=== PATIENT | male | born 1990 | race Caucasian/White ===

== ENCOUNTER 2017-01-21 21:02 | Emergency (ER) | payer MEDICAID ==
[2017-01-21 21:08] VITALS: RESP 18; TEMP 98.2
[2017-01-21] MEDS ORDERED: LORAZEPAM 1 MG PREPACK#4 BTL TAKEHOME ONE (22:05)
[2017-01-21] MEDS ORDERED: LORazepam 1 MG TAB PO ONE (22:07)
--- NOTE | 2017-01-21 22:11 | EDPHY ---
H & P Stated Complaint: increasing anxiety, anxiety attack starting at 1700, MMJ at 1200 Time Seen by Provider: 01/21/17 21:10 HPI/ROS: CHIEF COMPLAINT: Anxiety attack HISTORY OF PRESENT ILLNESS: 26 year old male presents to the emergency department with his mother reports increasing anxiety over the last month. Patient has recently had a break-up with his girlfriend who was cheating on him. This has caused a significant increase in his anxiety. Patient reports a history of anxiety, depression, attention deficit hyperactivity disorder. He sees a psychiatrist every and a therapist weekly. His psychiatrist appointment is not for another 2 weeks. He has an appointment with his therapist tomorrow. Patient takes gabapentin daily for his anxiety. Patient reports he has been drinking more alcohol than usual, 2-3 drinks a night 6-7 drinks a couple days during the week, last binge was 4 days ago. Patient reports he has not been sleeping. Patient denies suicidal ideations, homicidal ideations, auditory or visual hallucinations. Patient denies history of benzodiazepine use or abuse. He reports occasional marijuana use. REVIEW OF SYSTEMS: A comprehensive 10 point review of systems is otherwise negative aside from elements mentioned in the history of present illness. Source: Patient Exam Limitations: No limitations - Personal History Current Tetanus/Diphtheria Vaccine: Yes Tetanus Vaccine Date: 2012 - Medical/Surgical History Hx Asthma: No Hx Chronic Respiratory Disease: No Hx Diabetes: No Hx Cardiac Disease: No Hx Renal Disease: No Hx Cirrhosis: No Hx Alcoholism: No Hx HIV/AIDS: No Hx Splenectomy or Spleen Trauma: No Other PMH: PSH: appy. PMH: anxiety and depression - Social History Smoking Status: Never smoked Alcohol Use: Heavy Drug Use: Marijuana - Physical Exam Exam: Physical Exam Gen: Alert and Oriented, NAD HEENT: PERRL, moist mucous membranes NECK: no meningismus CV: regular rate and regular rhythm PULM: CTAB, no wheezes ABDOMEN: soft, non tender to palpation, BS present BACK: No CVA tenderness NEURO: Neurologically grossly intact EXTREMITIES: normal appearing SKIN: no rash or break in skin on exposed skin PSYCH: Anxious, denies suicidal ideation, homicidal ideation, auditory and visual hallucinations. Constitutional: Initial Vital Signs Temperature (C) 36.8 C 01/21/17 21:05 Heart Rate 79 01/21/17 21:05 Respiratory Rate 18 01/21/17 21:05 Blood Pressure 117/85 H 01/21/17 21:05 O2 Sat (%) 96 01/21/17 21:05 O2 Delivery Mode Room Air Allergies/Adverse Reactions: No Known Allergies Allergy (Unverified 01/21/17 21:05) Home Medications: Medication Instructions Recorded Gabapentin 01/21/17 Viibryd 01/21/17 Medical Decision Making ED Course/Re-evaluation: 26-year-old male presents with worsening anxiety over the last month. He reports he has not slept for 4 days. His mother is at bedside with him. Patient is given 1 mg of lorazepam in the emergency department. He is discharged with a prepack of 4 tablets of 1 mg lorazepam. He agrees to follow up with his therapist tomorrow as scheduled and will call his psychiatrist Monday morning to be seen at 1st available appointment. Patient denies suicidal ideations, homicidal ideations, auditory or visual hallucinations. He is given [facility] and the crisis Center for increase in symptoms. He also is instructed he can return to the emergency department for any new symptoms, worsening symptoms or concerns. Differential Diagnosis: Diagnosis considered but not limited to anxiety, depression, polysubstance abuse. Departure - Departure Disposition: Home, Routine, Self-Care Clinical Impression: Anxiety attack Condition: Good Instructions: Lorazepam (By mouth), Anxiety (ED), Panic Attack (ED) Additional Instructions: Take 1mg of Lorazepam every 8 hours as needed for anxiety. Follow-up with your therapist as scheduled tomorrow at 11:00 a.m.. Call your psychiatrist 1st thing Monday morning to make an earlier appointment. Do not drink any alcohol as this makes anxiety and depression much works. Do not use any drugs. [employer] [facility] does operate a 13/02 psychiatric crisis unit located at [address] [place] [address]. The telephone number for the 24 hour crisis center is . Please return to the ED if you are feeling suicidal, having thoughts of harming yourself/others or should you feel unsafe or have worsening symptoms. Referrals: MAYRA MCCOY [Other] - As per Instructions
[2017-01-21 22:22] VITALS: BP 146/84; PULSE 70; O2SAT 97
== END 2017-01-21 22:20 | disposition home or self-care (01) ==
DX: F41.9 Anxiety disorder, unspecified (principal)

== ENCOUNTER 2017-03-09 07:47 | Emergency (ER) | payer MEDICAID ==
[2017-03-09 07:54] VITALS: RESP 18
[2017-03-09] MEDS ORDERED: chlordiazePOXIDE 25 MG CAP PO ONE (08:03)
[2017-03-09] MEDS ORDERED: LORazepam 2 MG/ML INJ IVP ONE ×4 (08:03→11:44)
[2017-03-09] MEDS ORDERED: NS 1,000 ML IV ONE ×2 (08:03→09:31)
--- NOTE | 2017-03-09 08:08 | EDPHY ---
HPI/HX/ROS/PE/MDM Narrative: CHIEF COMPLAINT: Polysubstance abuse HPI: The patient is a 26-year-old male here with polysubstance abuse. The patient states he has been drinking heavily for the past three days. His last drink was at 10 p.m. last night. Patient admits to Xanax and cocaine use as well for the past two days. He states he was feeling more anxious and having panic attacks. Patient took 1600mg Gabapentin, but continues to feel anxious. He complains of a headache, abdominal pain, and feels very dehydrated. He denies chest pain, palpitations, vomiting, or diarrhea. REVIEW OF SYSTEMS: Aside from elements discussed in the HPI, a comprehensive 10-point review of systems was reviewed and is negative. PMH: Anxiety, Depression, Alcohol abuse PSH: Appendectomy SOCIAL HISTORY: Heavy alcohol use, Cocaine use. PHYSICAL EXAM: General: Patient is alert, in no acute distress. ENT: Eyes are normal to inspection. ENT inspection normal. Neck: Normal inspection. Full range of motion. Respiratory: No respiratory distress. Breath sounds normal bilaterally. Cardiovascular: Regular rate and rhythm. Strong peripheral pulses. Abdomen: The abdomen is nontender to palpation. There are no peritoneal signs. There are normal bowel sounds. Back: Normal to inspection. No tenderness to palpation. Skin: Normal color. No rash. Warm and dry. Extremities: Normal appearance. Full range of motion. Neuro: Oriented x3. Normal motor function. Normal sensory function. ED Course: Patient received Librium, Ativan, and IV fluids. Plan to check basic lab work. HR has remained between 108 and 120 after Ativan, Librium, and fluids. Patient is ready to be discharged. He asked me for a prescription for Klonopin. I told the patient I will not fill the medication and that he should followup with his PCP to discuss medication refill. Patient will be discharged to the [facility]. MDM: This patient presents with a combination of alcohol withdrawal, anxiety and polysubstance, including cocaine, abuse. We treated him with IVNS and ativan. On re-evaluation he feels much better. I see no evidence of infectious process or cardiovascular disease. He would like to be discharged home. - Data Points Laboratory Results: Laboratory Results 03/09/17 08:20 03/09/17 08:20 Sodium 139 mEq/L mEq/L (134-144) Potassium 4.2 mEq/L mEq/L (3.5-5.2) Chloride 94 mEq/L L mEq/L (97-110) Carbon Dioxide 20 mEq/l L mEq/l (22-31) Anion Gap 25 mEq/L H mEq/L (8-16) BUN 14 mg/dL mg/dL (7-23) Creatinine 1.5 mg/dL H mg/dL (0.7-1.3) Estimated GFR 57 Glucose 80 mg/dL mg/dL (70-100) Calcium 10.9 mg/dL H mg/dL (8.5-10.4) Phosphorus 4.1 mg/dL mg/dL (2.5-4.5) Ethyl Alcohol 97 mg/dL H mg/dL (0-10) Medications Given: Discontinued Medications Chlordiazepoxide HCl (Librium) 25 mg PO EDNOW ONE Stop: 03/09/17 08:04 Last Admin: 03/09/17 08:15 Dose: 25 mg Sodium Chloride (Ns) 1,000 mls @ 0 mls/hr IV EDNOW ONE; Wide Open PRN Reason: Protocol Stop: 03/09/17 08:04 Last Admin: 03/09/17 08:16 Dose: 1,000 mls Sodium Chloride (Ns) 1,000 mls @ 0 mls/hr IV ONCE ONE PRN Reason: Wide Open Stop: 03/09/17 09:32 Last Admin: 03/09/17 09:42 Dose: 1,000 mls Lorazepam (Ativan Injection) 1 mg IVP EDNOW ONE Stop: 03/09/17 08:04 Last Admin: 03/09/17 08:15 Dose: 1 mg Lorazepam (Ativan Injection) 1 mg IVP EDNOW ONE Stop: 03/09/17 10:11 Last Admin: 03/09/17 10:19 Dose: 1 mg Lorazepam (Ativan Injection) 1 mg IVP EDNOW ONE Stop: 03/09/17 10:12 Last Admin: 03/09/17 10:19 Dose: Not Given Lorazepam (Ativan Injection) 1 mg IVP EDNOW ONE Stop: 03/09/17 11:45 Last Admin: 03/09/17 11:48 Dose: 1 mg General Time Seen by Provider: 03/09/17 07:59 Initial Vital Signs: Initial Vital Signs Temperature (C) 36.7 C 03/09/17 07:48 Heart Rate 126 H 03/09/17 07:48 Respiratory Rate 18 03/09/17 07:48 Blood Pressure 111/91 H 03/09/17 07:48 O2 Sat (%) 94 03/09/17 07:48 O2 Delivery Mode Room Air Allergies/Adverse Reactions: No Known Allergies Allergy (Verified 03/09/17 17:47) Home Medications: Medication Instructions Recorded Gabapentin 01/21/17 Viibryd 01/21/17 Levomefolate/Algal Oil 5 mg PO 03/09/17 [Deplin-Algal Oil 7.5 mg Cap] chlordiazePOXIDE 25MG PREPK#6 1 btl TAKEHOME Q6-8PRN PRN #6 btl 03/09/17 [Librium 25 mg Prepack#6] Departure - Departure Disposition: Home, Routine, Self-Care Clinical Impression: Polysubstance abuse Condition: Good Instructions: Polysubstance Abuse (ED) Additional Instructions: Please refrain from abusing alcohol and other drugs. Return to the emergency department immediately for fever, vomiting, confusion, headache, abdominal pain or other worsening of condition. Followup with your primary care physician within 72 hours for reevaluation. Referrals: [facility],. [Clinic] - As per Instructions [facility] 24 Hours [Outside] - As per Instructions Report Scribed for: Zachery Heredia Report Scribed by: Kathe Yang Date of Report: 03/09/17 Time of Report: 08:08 Physician Review and Approval Statement: Portions of this note were transcribed by a medical operations supervisor. I personally performed the history, physical exam, and medical decision-making; and confirmed the accuracy of the information in the transcribed note.
[2017-03-09 08:41] LABS: ANION GAP 25 mEq/L (8-16); CALCIUM 10.9 mg/dL (8.5-10.4); CARBON DIOXIDE 20 mEq/l (22-31); CHLORIDE 94 mEq/L (97-110); CREATININE 1.5 mg/dL (0.7-1.3); ETHANOL SERUM 97 mg/dL (0-10); GLOMERULAR FILTRATION RATE 57; GLUCOSE 80 mg/dL (70-100); POTASSIUM 4.2 mEq/L (3.5-5.2); SODIUM 139 mEq/L (134-144)
[2017-03-09 09:31] VITALS: O2SAT 95
[2017-03-09 11:50] VITALS: BP 116/80; PULSE 120
[2017-03-09 12:19] VITALS: TEMP 97.5
== END 2017-03-09 12:19 | disposition home or self-care (01) ==
DX: F19.10 Other psychoactive substance abuse, uncomplicated (principal); E86.9 Volume depletion, unspecified
CPT/HCPCS: 96374; G0480; J2060

== ENCOUNTER 2017-03-09 15:28 | Emergency (ER) | payer MEDICAID ==
[2017-03-09 15:32] VITALS: BP 117/82; PULSE 101; RESP 18; TEMP 97.7; O2SAT 97
--- NOTE | 2017-03-09 16:23 | EDPHY ---
H & P Stated Complaint: Still anxious;n/v;here this morning;wants something for his stomach HPI/ROS: I went to go and see and evaluate this patient however the patient eloped from the emergency room. I did not see or evaluate him. Source: Patient - Personal History Tetanus Vaccine Date: 2012 - Medical/Surgical History Hx Asthma: No Hx Chronic Respiratory Disease: No Hx Diabetes: No Hx Cardiac Disease: No Hx Renal Disease: No Hx Cirrhosis: No Hx Alcoholism: Yes Hx HIV/AIDS: No Hx Splenectomy or Spleen Trauma: No Other PMH: PSH: appy. PMH: anxiety and depression, alcohol abuse - Social History Smoking Status: Never smoked Constitutional: Initial Vital Signs Temperature (C) 36.5 C 03/09/17 15:29 Heart Rate 101 H 03/09/17 15:29 Respiratory Rate 18 03/09/17 15:29 Blood Pressure 117/82 H 03/09/17 15:29 O2 Sat (%) 97 03/09/17 15:29 O2 Delivery Mode Room Air Allergies/Adverse Reactions: No Known Allergies Allergy (Verified 03/09/17 15:29) Home Medications: Medication Instructions Recorded Gabapentin 01/21/17 Viibryd 01/21/17 Levomefolate/Algal Oil 5 mg PO 03/09/17 [Deplin-Algal Oil 7.5 mg Cap] Departure - Departure Disposition: Left Without Being Seen Referrals: NONE *PRIMARY CARE P,. [Primary Care Provider] - As per Instructions
== END 2017-03-09 16:20 | disposition left against medical advice (07) ==
DX: Z53.21 Procedure and treatment not carried out due to patient leaving prior to being seen by health care provider (principal)

== ENCOUNTER 2017-03-09 17:47 | Emergency (ER) | payer MEDICAID ==
[2017-03-09 17:50] VITALS: TEMP 97.7; O2SAT 97
[2017-03-09] MEDS ORDERED: chlordiazePOXIDE 25 MG CAP PO ONE (18:01)
[2017-03-09] MEDS ORDERED: LORazepam 2 MG/ML INJ IVP ONE (18:01)
[2017-03-09] MEDS ORDERED: LORazepam 1 MG TAB PO ONE (18:01)
[2017-03-09] MEDS ORDERED: ONDANSETRON 4 MG/2 ML VIAL IVP ONE (18:05)
--- NOTE | 2017-03-09 18:13 | EDPHY ---
H & P Smoking Status: Never smoked Time Seen by Provider: 03/09/17 18:12 HPI/ROS: HPI: Mr. Matias is a 26 yrs, male who presents with Chief Complaint: Alcohol withdrawal Location: Body Quality: Alcohol withdrawal Duration: Starting today Signs and Symptoms: Positive nausea, no vomiting, mild tremor, no sweating, severe anxiety, no agitation, mild tactile disturbances, no auditory disturbance , no visual disturbance, denies suicidal ideation, denies homicidal ideation, denies hallucinations, mild headache Timing: Constant, worsening Severity: Moderate Context: Patient has a history of regular alcohol use drinking approximately 10 -12 shots of vodka daily. Patient was seen earlier in the day, with lab workup , symptom resolution with IV Ativan and Librium, per chart review patient eloped. Patient was seen at the [facility] and was noted to be in alcoholic and sent to the ER for medical clearance and medication. Also admits to using Ativan and cocaine approximately 5 days ago but denies regular use. Has a history of anxiety and depression diagnosed at 14 years of age. Denies any psychiatric admission. Denies any suicide attempts. Modifying Factors: Comment: ROS: Eyes: No blurred vision Respiratory: No shortness of breath, no cough Cardiovascular: No chest pain Gastrointestinal: + nausea, no vomiting no diarrhea Genitourinary: No dysuria Extremities: No myalgias Neurologic: No weakness, no numbness Skin: No rashes Hematologic: No bruising, no bleeding MEDICAL/SURGICAL HISTORY: Generally healthy. Appendectomy. (Blanca Norman) Social History: Unemployed. Has a girlfriend. (Blanca Norman) Physical Exam: CONSTITUTIONAL: Adult white male, jittery, awake and alert, no obvious distress HEENT: Atraumatic and normocephalic, PERRL, EOMI. Tympanic membranes clear. . Oropharynx clear, no exudate and moist pink mucosa. Airway patent. No lymphadenopathy. No meningismus. Cardiovascular: Normal S1/S2, tachycardia, regular rhythm, without murmur rub or gallop. PULMONARY/CHEST: Symmetrical and nontender. Clear to auscultation bilaterally Good air movement. No accessory muscle usage. ABDOMEN: Soft, nondistended, nontender, no rebound, no guarding, no peritoneal signs, no masses or organomegaly. No CVAT. EXTREMITIES: 2/2 pulses, no deformities, no clubbing, no cyanosis or edema. NEUROLOGICAL: no focal neuro deficits. GCS 15. SKIN: Warm and dry, no erythema. no rash. Good capillary refill. (Blanca Norman) Constitutional: Initial Vital Signs Temperature (C) 36.5 C 03/09/17 17:48 Heart Rate 104 H 03/09/17 17:48 Respiratory Rate 18 03/09/17 17:48 Blood Pressure 110/82 H 03/09/17 17:48 O2 Sat (%) 97 03/09/17 17:48 O2 Delivery Mode Room Air Allergies/Adverse Reactions: No Known Allergies Allergy (Verified 03/09/17 17:47) Home Medications: Medication Instructions Recorded Gabapentin 01/21/17 Viibryd 01/21/17 Levomefolate/Algal Oil 5 mg PO 03/09/17 [Deplin-Algal Oil 7.5 mg Cap] chlordiazePOXIDE 25MG PREPK#6 1 btl TAKEHOME Q6-8PRN PRN #6 btl 03/09/17 [Librium 25 mg Prepack#6] Medical Decision Making ED Course/Re-evaluation: Labs, IVF 1 liter NS, and oral medication given CIWA 8 No signs of anemia, electrolyte imbalance, delirium tremens, acute kidney injury , seizure disorder No homicidal ideation, suicidal ideation, psychosis Advised to follow up with the [facility] and Librium prepack will be given (Blanca Norman) Differential Diagnosis: Nausea and vomiting including but not limited to gastroenteritis, gastritis, appendicitis, and medication side effect. (Blanca Norman) - Data Points Laboratory Results: Laboratory Results 03/09/17 18:10 03/09/17 18:10 03/09/17 03/09/17 18:10 18:10 WBC 8.59 10^3/uL 10^3/uL (3.80-9.50) RBC 4.81 10^6/uL 10^6/uL (4.40-6.38) Hgb 16.1 g/dL g/dL (13.7-17.5) Hct 44.8 % % (40.0-51.0) MCV 93.1 fL fL (81.5-99.8) MCH 33.5 pg pg (27.9-34.1) MCHC 35.9 g/dL g/dL (32.4-36.7) RDW 11.9 % % (11.5-15.2) Plt Count 300 10^3/uL 10^3/uL (150-400) MPV 9.1 fL fL (8.7-11.7) Neut % (Auto) 72.8 % % (39.3-74.2) Lymph % (Auto) 19.1 % % (15.0-45.0) [place] % (Auto) 7.5 % % (4.5-13.0) Eos % (Auto) 0.1 % L % (0.6-7.6) Baso % (Auto) 0.3 % % (0.3-1.7) Nucleat RBC Rel Count 0.0 % % (0.0-0.2) Absolute Neuts (auto) 6.25 10^3/uL 10^3/uL (1.70-6.50) Absolute Lymphs (auto) 1.64 10^3/uL 10^3/uL (1.00-3.00) Absolute Monos (auto) 0.64 10^3/uL 10^3/uL (0.30-0.80) Absolute Eos (auto) 0.01 10^3/uL L 10^3/uL (0.03-0.40) Absolute Basos (auto) 0.03 10^3/uL 10^3/uL (0.02-0.10) Absolute Nucleated RBC 0.00 10^3/uL 10^3/uL (0-0.01) Immature Gran % 0.2 % % (0.0-1.1) Immature Gran # 0.02 10^3/uL 10^3/uL (0.00-0.10) Sodium 139 mEq/L mEq/L (134-144) Potassium 4.3 mEq/L mEq/L (3.5-5.2) Chloride 98 mEq/L mEq/L (97-110) Carbon Dioxide 22 mEq/l mEq/l (22-31) Anion Gap 19 mEq/L H mEq/L (8-16) BUN 14 mg/dL mg/dL (7-23) Creatinine 1.1 mg/dL mg/dL (0.7-1.3) Estimated GFR > 60 Glucose 85 mg/dL mg/dL (70-100) Calcium 9.8 mg/dL mg/dL (8.5-10.4) Salicylates < 1.0 mg/dL L mg/dL (2.0-20.0) Acetaminophen < 10 mcg/mL L mcg/mL (10-30) Ethyl Alcohol < 10 mg/dL mg/dL (0-10) Medications Given: Discontinued Medications Chlordiazepoxide HCl (Librium) 25 mg PO EDNOW ONE Stop: 03/09/17 18:02 Last Admin: 03/09/17 19:43 Dose: 25 mg Lorazepam (Ativan) 1 mg PO EDNOW ONE Stop: 03/09/17 18:02 Last Admin: 03/09/17 20:13 Dose: Not Given Lorazepam (Ativan Injection) 1 mg IVP EDNOW ONE Stop: 03/09/17 18:02 Last Admin: 03/09/17 18:21 Dose: 1 mg Ondansetron HCl (Zofran Odt) 4 mg PO EDNOW ONE Stop: 03/09/17 19:30 Last Admin: 03/09/17 19:42 Dose: 4 mg Departure - Departure Disposition: Home, Routine, Self-Care Clinical Impression: Alcohol abuse with alcohol-induced anxiety disorder Alcohol withdrawal Qualifiers: Complication of substance-induced condition: uncomplicated Qualified Code(s): F10.230 - Alcohol dependence with withdrawal, uncomplicated Clinical Impression: (Ruled Out): 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 [Primary Care Provider] - As per Instructions [facility] 24 Hours [Outside] - As per Instructions Prescriptions: chlordiazePOXIDE 25MG PREPK#6 [Librium 25 mg Prepack#6] 1 btl TAKEHOME Q6-8PRN PRN #6 btl PRN Reason: Ciwa Score 6 - 11
[2017-03-09 18:22] LABS: % IMMATURE GRANULYOCYTES 0.2 % (0.0-1.1); ABSOLUTE IMMATURE GRANULOCYTES 0.02 10^3/uL (0.00-0.10); ADD DIFF? NO; ADD MORPH? NO; ADD SCAN? NO; ATYPICAL LYMPHOCYTE FLAG 0 (0-99); FRAGMENT RBC FLAG 0 (0-99); HEMATOCRIT 44.8 % (40.0-51.0); HEMOGLOBIN 16.1 g/dL (13.7-17.5); LEFT SHIFT FLG 0 (0-99); LIPEMIA HEMOLYSIS FLAG 90 (0-99); MEAN CELL HEMOGLOBIN 33.5 pg (27.9-34.1); MEAN CELL HEMOGLOBIN CONCENTR. 35.9 g/dL (32.4-36.7); MEAN CELL VOLUME 93.1 fL (81.5-99.8); MEAN PLATELET VOLUME 9.1 fL (8.7-11.7); PLATELET CLUMPS FLAG 0 (0-99); PLATELET COUNT 300 10^3/uL (150-400); RED BLOOD CELL COUNT 4.81 10^6/uL (4.40-6.38); RED CELL DISTRIBUTION WIDTH 11.9 % (11.5-15.2)
[2017-03-09 18:33] LABS: ANION GAP 19 mEq/L (8-16); CALCIUM 9.8 mg/dL (8.5-10.4); CARBON DIOXIDE 22 mEq/l (22-31); CHLORIDE 98 mEq/L (97-110); CREATININE 1.1 mg/dL (0.7-1.3); ETHANOL SERUM < 10 mg/dL (0-10); GLOMERULAR FILTRATION RATE > 60; GLUCOSE 85 mg/dL (70-100); POTASSIUM 4.3 mEq/L (3.5-5.2); SALICYLATE < 1.0 mg/dL (2.0-20.0); SODIUM 139 mEq/L (134-144)
[2017-03-09] MEDS ORDERED: ONDANSETRON DISINTEGRATING 4 MG TAB PO ONE (19:29)
[2017-03-09 19:46] VITALS: BP 127/82; PULSE 98; RESP 16
== END 2017-03-09 20:15 | disposition home or self-care (01) ==
DX: F10.230 Alcohol dependence with withdrawal, uncomplicated (principal)
CPT/HCPCS: 96374; G0480; J2060

== ENCOUNTER 2017-11-04 18:30 | Emergency (ER) | payer MEDICAID ==
[2017-11-04 18:54] VITALS: BP 119/56
--- NOTE | 2017-11-04 19:15 | EDPHY ---
H & P Time Seen by Provider: 11/04/17 19:08 HPI/ROS: CHIEF COMPLAINT: Medication refill request HISTORY OF PRESENT ILLNESS: 27-year-old male history of depression ran out of his Viibryd 60 mg once daily medication 2 days ago. He recently moved from [place]. He is planning on following up with psychiatrist here in [place]. Today is Monday. He did not know where to go. He is feeling the effects of coming off this medication. He denies suicidal or homicidal ideation. PHYSICAL EXAM (Prior to examination, patient consented to physical exam, hands were washed and my usual and customary physical exam procedures followed) 1) GENERAL: Well-developed, well-nourished, alert and oriented. Appears to be in no acute distress. 2) HEAD: Normocephalic 3) HEENT: sclera anicteric 4) LUNGS: Breathing comfortably. Smoking Status: Never smoked Constitutional: Initial Vital Signs Temperature (C) 37 C 11/04/17 18:52 Heart Rate 56 L 11/04/17 18:52 Respiratory Rate 16 11/04/17 18:52 Blood Pressure 119/56 L 11/04/17 18:52 O2 Sat (%) 97 11/04/17 18:52 O2 Delivery Mode Room Air Allergies/Adverse Reactions: No Known Allergies Allergy (Verified 11/04/17 18:50) Home Medications: Medication Instructions Recorded Gabapentin 01/21/17 Viibryd 01/21/17 Levomefolate/Algal Oil 5 mg PO 03/09/17 [Deplin-Algal Oil 7.5 mg Cap] Vilazodone HCl [Viibryd] 60 mg PO DAILY 30 Days tablet 11/04/17 MDM/Departure - [facility] ED Course/Re-evaluation: 7:13 p.m.: Agreed this patient 1 month prescription of his medication. However further refills will be obtained from his psychiatrist. I have provided him with mental health resources as well. He does not meet criteria for an M1 hold. He is calm, cooperative without suicidal or homicidal ideations. Care of patient under supervision of secondary supervising physician Dr Mcdonnell. - Depart Disposition: Home, Routine, Self-Care Clinical Impression: Medication refill request, History of depression Condition: Good Instructions: Depression (ED) Additional Instructions: Return to the ER immediately if you experience thoughts of hurting yourself, thoughts of hurting other people, thoughts of killing other people or killing yourself. Prescriptions: Vilazodone HCl [Viibryd] 60 mg PO DAILY 30 Days tablet Referrals: [facility],. [Clinic] - 2-3 days, call for appt. (Further prescriptions will need to be obtained from your primary mental health provider)
== END 2017-11-04 19:29 | disposition home or self-care (01) ==
DX: Z76.0 Encounter for issue of repeat prescription (principal); Z86.59 Personal history of other mental and behavioral disorders

== ENCOUNTER 2017-12-12 10:14 | Emergency (ER) | payer MEDICAID ==
[2017-12-12 10:22] VITALS: BP 112/69
--- NOTE | 2017-12-12 10:27 | EDPHY ---
H & P Stated Complaint: needs prescription for viibrid, working [facility] Time Seen by Provider: 12/12/17 10:23 - Personal History Current Tetanus/Diphtheria Vaccine: Yes Current Tetanus Diphtheria and Acellular Pertussis (TDAP): Yes Tetanus Vaccine Date: 2012 - Medical/Surgical History Hx Asthma: No Hx Chronic Respiratory Disease: No Hx Diabetes: No Hx Cardiac Disease: No Hx Renal Disease: No Hx Cirrhosis: No Hx Alcoholism: Yes Hx HIV/AIDS: No Hx Splenectomy or Spleen Trauma: No Other PMH: PSH: appy. PMH: anxiety and depression, alcohol abuse - Social History Smoking Status: Never smoked Constitutional: Initial Vital Signs Temperature (C) 36.7 C 12/12/17 10:20 Heart Rate 70 12/12/17 10:20 Respiratory Rate 18 12/12/17 10:20 Blood Pressure 112/69 12/12/17 10:20 O2 Sat (%) 97 12/12/17 10:20 O2 Delivery Mode Room Air Allergies/Adverse Reactions: No Known Allergies Allergy (Verified 12/12/17 10:19) Home Medications: Medication Instructions Recorded Gabapentin 01/21/17 Viibryd 01/21/17 Levomefolate/Algal Oil 5 mg PO 03/09/17 [Deplin-Algal Oil 7.5 mg Cap] Vilazodone HCl [Viibryd] 60 mg PO DAILY 30 Days tablet 11/04/17 Vilazodone HCl [Viibryd] 60 mg PO DAILY #90 tablet 12/12/17 Medical Decision Making ED Course/Re-evaluation: CHIEF COMPLAINT: Viibryd refill HISTORY OF PRESENT ILLNESS: The patient is a 27 y/o male with a history of anxiety and depression complaining of needing a Viibryd refill. He has been taking Viibryd for 3 years , but recently moved back to [place] and has not established a psychiatrist yet. He recently ran out of his Viibryd medication 11 days ago, and has been feeling anxious and has had difficulty sleeping. Denies suicidal or homicidal ideations. Denies chest pain, shortness of breath, abdominal pain, urinary or bowel complaints, numbness, paresthesias. REVIEW OF SYSTEMS: A 10 point review of systems was performed and is negative with the exception of the elements mentioned in the history of present illness. PHYSICAL EXAM: HR, BP, O2 Sat, RR. Temp noted General Appearance: Alert, well hydrated, appropriate, and non-toxic appearing. Head: Atraumatic without scalp tenderness or obvious injury Eyes: Pupils equal, round, reactive to light and accommodation, EOMI, no trauma , no injection. Ears: Clear bilaterally, no perforation, normal landmarks Nose: Atraumatic, no rhinorrhea, clear. Throat: There is no erythema or exudates, no lesions, normal tonsils, mucus membranes moist. Neck: Supple, nontender, no lymphadenopathy. Respiratory: No retractions, no distress, no wheezes, and no accessory muscle use. Lungs are clear to auscultation bilaterally. Cardiovascular: Regular rate and rhythm, no murmurs, rubs, or gallops. Bilateral carotid, radial, dorsalis pedis, and posterior tibial pulses intact. Good capillary refill all extremities. Gastrointestinal: Abdomen is soft, nontender, non-distended, no masses, no rebound, no guarding, no peritoneal signs. Musculoskeletal: Normal active ROM of all extremities, atraumatic. Neurological: Alert, appropriate, and interactive. The patient has normal DTRs and non-focal cranial nerves, motor, sensory, and cerebellar exam. Skin: No rashes, good turgor, no nodules on palpation. Past medical history: Anxiety and depression Past surgical history: Appendectomy Family history: Denies Social history: Lives in [place], not employed, single DIFFERENTIAL DIAGNOSIS: The differential diagnosis for the patient's depression included but was not limited to prescription refill, functional and major depression, situational depression, medication side effect, drugs, and alcohol abuse. MEDICAL DECISION MAKING: The patient is a 27 y/o male with a history of anxiety and depression presenting with needing a Viibryd refill. He is mildly anxious but otherwise his exam is normal. Laboratory and imaging studies are not indicated at this time. 1026: Spoke with case management regarding this patient. 1033: Reassessed patient; I have provided him a Viibryd prescription for a month with one refill. I have also discussed establishing a psychiatrist. Return precautions provided; patient is comfortable with this plan. Departure - Departure Disposition: Home, Routine, Self-Care Clinical Impression: Prescription refill Depression Qualifiers: Depression Type: unspecified Qualified Code(s): F32.9 - Major depressive disorder, single episode, unspecified Condition: Good Instructions: Depression (ED) Additional Instructions: 1. Take Viibryd as prescribed. 2. Follow-up with your mental health provider as directed. 3. Return to the ED for thoughts of self-harm, racing thoughts or other concerns. Referrals: [facility],. [Clinic] - As per Instructions [facility],. [Clinic] - As per Instructions Pato Kohler DO [Doctor of Osteopathy] - As per Instructions Prescriptions: Vilazodone HCl [Viibryd] 60 mg PO DAILY #90 tablet Report Scribed for: Alex Rodriguez Report Scribed by: Annie Keith Date of Report: 12/12/17 Time of Report: 10:34
--- NOTE | 2017-12-12 11:36 | ASMTCMCOM ---
CM Note CM Note Notes: Patient arrives to ED today requesting refil of his Vibryd, stating that he is newly back in [place] and has not established a psychiatrist or PCP. Patient provided a prescription and encouraged to follow up with a prescriber. Patient evidently reported that he has been trying to get in with [facility] but has not been able to make an appointment. Chart reviewed and noted that patient was in this ED on 11/04/17 requesting a prescription for his Vibryd. He received a 30 day prescription and given resources for [facility] and other prescribers at that time. I have called [facility] and LM with Astrid (Dr. De's nurse) [phone] re patient's return to the ED and determine if he is a current patient and/or has a pending appointment. I have LM with the patient as well to see if he has established a provider and/or would like assistance in doing so Date Signed: 12/12/2017 11:35 AM Electronically Signed By:Tiffany White RN
== END 2017-12-12 10:37 | disposition home or self-care (01) ==
DX: F32.9 Major depressive disorder, single episode, unspecified (principal); Z76.0 Encounter for issue of repeat prescription

== ENCOUNTER 2018-08-17 07:45 | Emergency (ER) | payer MEDICAID ==
--- NOTE | 2018-08-17 08:56 | EDPHY ---
H & P Stated Complaint: pt has small lump under skin around l flank area Time Seen by Provider: 08/17/18 08:56 HPI/ROS: HPI: This is a 28-year-old male who presents with Chief Complaint: pt has small lump under skin around l flank area Location: Left flank Quality: Lump under skin Duration: Several weeks Signs and Symptoms: no fever, no nausea, no vomiting, no diarrhea, no urinary symptoms, no chest pain, no shortness of breath, no wheezing, no cough, no sore throat, no neck stiffness, no joint pain, no swollen glands, no ear pain, no rash, no skin color changes Timing: Unknown Severity: Mild Context: Modifying Factors: Comment: ROS: A comprehensive 10 system review of systems is otherwise negative aside from elements mentioned in the history of present illness. MEDICAL/SURGICAL/SOCIAL HISTORY: Medical history: anxiety and depression, alcohol abuse Surgical history: Appendectomy Social history: Never smoked. Family history noncontributory. CONSTITUTIONAL: Well-developed, well-nourished nontoxic-appearing adult white male who is slightly anxious, awake and alert, no obvious distress HEENT: Atraumatic and normocephalic, PERRL, EOMI. Nares patent; no rhinorrhea; no nasal mucosal edema. Tympanic membranes clear. Oropharynx clear, no exudate and moist pink mucosa. Airway patent. No lymphadenopathy. No meningismus. Cardiovascular: Normal S1/S2, regular rate, regular rhythm, without murmur rub or gallop. PULMONARY/CHEST: Symmetrical and nontender. Clear to auscultation bilaterally. Good air movement. No accessory muscle usage. ABDOMEN: Soft, nondistended, nontender, no rebound, no guarding, no peritoneal signs, no masses or organomegaly. No CVAT. EXTREMITIES: 2/2 pulses, strength 5/5, no deformities, no clubbing, no cyanosis or edema. NEUROLOGICAL: no focal neuro deficits. GCS 15. SKIN: Warm and dry, soft mobile 2-3 mm subcutaneous lipoma with no erythema, induration, drainage, pain, warmth on the left flank. no rash. Good capillary refill. Source: Patient Exam Limitations: No limitations - Personal History Current Tetanus Diphtheria and Acellular Pertussis (TDAP): Yes Tetanus Vaccine Date: 2012 - Medical/Surgical History Hx Asthma: No Hx Chronic Respiratory Disease: No Hx Diabetes: No Hx Cardiac Disease: No Hx Renal Disease: No Hx Cirrhosis: No Hx Alcoholism: Yes Hx HIV/AIDS: No Hx Splenectomy or Spleen Trauma: No Other PMH: PSH: appy. PMH: anxiety and depression, alcohol abuse - Social History Smoking Status: Never smoked Constitutional: Initial Vital Signs Temperature (C) 36.9 C 08/17/18 07:48 Heart Rate 67 08/17/18 07:48 Respiratory Rate 16 08/17/18 07:48 Blood Pressure 109/58 L 08/17/18 07:48 O2 Sat (%) 96 08/17/18 07:48 O2 Delivery Mode Room Air Allergies/Adverse Reactions: No Known Allergies Allergy (Verified 08/17/18 07:47) Home Medications: Medication Instructions Recorded Gabapentin 01/21/17 Viibryd 01/21/17 Levomefolate/Algal Oil 5 mg PO 03/09/17 [Deplin-Algal Oil 7.5 mg Cap] Vilazodone HCl [Viibryd] 60 mg PO DAILY 30 Days tablet 11/04/17 Vilazodone HCl [Viibryd] 60 mg PO DAILY #90 tablet 12/12/17 Medical Decision Making ED Course/Re-evaluation: Vital signs reviewed and stable upon arrival. No secondary signs of infection. Suspect this to be subcutaneous lipoma. Given referral to PCP or dermatology or Plastic surgery. Patient was counseled on warning signs and to monitor signs and changes of area. This patient was seen under the supervision of my secondary supervising physician. I evaluated care for this patient with attending. Discussed this patient with Dr. Bhakta. Differential Diagnosis: Differential diagnosis includes but is not limited to cellulitis, abscess, lipoma, lymphadenopathy, malignancy. Departure - Departure Disposition: Home, Routine, Self-Care Clinical Impression: Lipoma of skin and subcutaneous tissue of trunk Condition: Good Instructions: Soft Tissue Mass (ED), Lipoma Removal (DC) Additional Instructions: Please monitor for any skin changes or change in size and then follow-up with your primary care provider. You can have this subcutaneous lipoma electively removed by General surgery or Plastic surgery. Referrals: PCP Not In,Dictionary [Medical Doctor] - As per Instructions (Patient cannot remember the doctor's name but reports he goes to [facility].)
[2018-08-17 09:58] VITALS: BP 134/51
== END 2018-08-17 09:57 | disposition home or self-care (01) ==
DX: R19.04 Left lower quadrant abdominal swelling, mass and lump (principal); Z90.49 Acquired absence of other specified parts of digestive tract

== ENCOUNTER 2018-12-10 15:14 | Emergency (ER) | payer MEDICAID ==
[2018-12-10 15:23] VITALS: BP 110/82
--- NOTE | 2018-12-10 15:25 | EDPHY ---
H & P Stated Complaint: Possible STD. Time Seen by Provider: 12/10/18 15:25 - Personal History Current Tetanus Diphtheria and Acellular Pertussis (TDAP): Yes Tetanus Vaccine Date: 2012 - Medical/Surgical History Hx Asthma: No Hx Chronic Respiratory Disease: No Hx Diabetes: No Hx Cardiac Disease: No Hx Renal Disease: No Hx Cirrhosis: No Hx Alcoholism: Yes Hx HIV/AIDS: No Hx Splenectomy or Spleen Trauma: No Other PMH: PSH: appy. PMH: anxiety and depression, alcohol abuse - Social History Smoking Status: Never smoked Constitutional: Initial Vital Signs Temperature (C) 36.6 C 12/10/18 15:21 Heart Rate 79 12/10/18 15:21 Respiratory Rate 16 12/10/18 15:21 Blood Pressure 110/82 H 12/10/18 15:21 O2 Sat (%) 95 12/10/18 15:21 O2 Delivery Mode Room Air Allergies/Adverse Reactions: No Known Allergies Allergy (Verified 08/17/18 07:47) Home Medications: Medication Instructions Recorded Gabapentin 01/21/17 Viibryd 01/21/17 Levomefolate/Algal Oil 5 mg PO 03/09/17 [Deplin-Algal Oil 7.5 mg Cap] Vilazodone HCl [Viibryd] 60 mg PO DAILY 30 Days tablet 11/04/17 Vilazodone HCl [Viibryd] 60 mg PO DAILY #90 tablet 12/12/17 Doxycycline Hyclate 100 mg PO BID #14 capsule 12/10/18 Medical Decision Making ED Course/Re-evaluation: CHIEF COMPLAINT: Concerned about STD HISTORY OF PRESENT ILLNESS: The patient is a 28 y/o male with a history of anxiety and depression complaining of being exposed to chlamydia. The patient reports that he just received a phone call from a sexual partner who stated that they had Chlamydia. He reports only minor tingling while urinating. No fever, headache, body aches, lightheadedness, chest pain, heart palpitations, shortness of breath, cough, abdominal pain, bowel complaints, numbness, paresthesias. REVIEW OF SYSTEMS: A comprehensive 10 system review of systems is otherwise negative aside from elements mentioned in the history of present illness and medical decision making. PHYSICAL EXAM: HR, BP, O2 Sat, RR. Temp noted General Appearance: Alert, well hydrated, appropriate, and non-toxic appearing. Head: Atraumatic without scalp tenderness or obvious injury Eyes: Pupils equal, round, reactive to light and accommodation, EOMI, no trauma , no injection. Ears: Clear bilaterally, no perforation, normal landmarks Nose: Atraumatic, no rhinorrhea, clear. Throat: There is no erythema or exudates, no lesions, normal tonsils, mucus membranes moist. Neck: Supple, 2+ carotid upstroke, nontender, no lymphadenopathy. Respiratory: No retractions, no distress, no wheezes, and no accessory muscle use. Lungs are clear to auscultation bilaterally. Cardiovascular: Regular rate and rhythm, no murmurs, rubs, or gallops. Bilateral carotid, radial, dorsalis pedis, and posterior tibial pulses intact. Good capillary refill all extremities. Gastrointestinal: Abdomen is soft, nontender, non-distended, no masses, no rebound, no guarding, no peritoneal signs. Musculoskeletal: Normal active ROM of all extremities, atraumatic. Neurological: Alert, appropriate, and interactive. The patient has normal DTRs and non-focal cranial nerves, motor, sensory, and cerebellar exam. Skin: No rashes, good turgor, no nodules on palpation. Past medical history: Anxiety and depression Past surgical history: Appendectomy Family history: Denies Social history: Lives in [place], single, not employed DIAGNOSTICS/PROCEDURES/CRITICAL CARE TIME: Not indicated. DIFFERENTIAL DIAGNOSIS: The differential diagnosis for the patient's complaint includes but is not limited to chlamydia, gonorrhea, HIV, hepatitis B or C, syphilis. MEDICAL DECISION MAKING: The patient is a 28 y/o male with a history of anxiety and depression complaining of being exposed to chlamydia. Labs ordered. 1gm IM Ceftriaxone and 500mg PO Doxycycline administered. I have also prescribed him Doxycycline. Return precautions provided; patient is comfortable with this plan. - Data Points Medications Given: Discontinued Medications Doxycycline Hyclate (Doxycycline Hyclate) 100 mg PO EDNOW ONE PRN Reason: Protocol Stop: 12/10/18 15:29 Last Admin: 12/10/18 15:45 Dose: 100 mg Departure - Departure Disposition: Home, Routine, Self-Care Clinical Impression: Chlamydia contact Condition: Good Instructions: Chlamydia (ED) Additional Instructions: 1. Take Doxycycline as prescribed. 2. Call the emergency department in several days to obtain your lab results. 3. Follow-up with your primary doctor within 72 hours. 4. Return to the Emergency Department for fever, chest pain, shortness of breath , increasing pain or other worsening of condition. Referrals: [facility] [Other] - As per Instructions Prescriptions: Doxycycline Hyclate 100 mg PO BID #14 capsule Report Scribed for: Alex Rodriguez Report Scribed by: Annie Keith Date of Report: 12/10/18 Time of Report: 15:26
[2018-12-10] MEDS ORDERED: DOXYCYCLINE HYCLATE 100 MG CAP/TAB PO ONE (15:28)
[2018-12-11 11:34] LABS: GC AMPLIFICATION GENPROBE NEGATIVE (NEGATIVE)
== END 2018-12-10 16:04 | disposition home or self-care (01) ==
DX: Z20.2 Contact with and (suspected) exposure to infections with a predominantly sexual mode of transmission (principal); F32.9 Major depressive disorder, single episode, unspecified; F41.9 Anxiety disorder, unspecified
CPT/HCPCS: J0696